=== PATIENT | female | born 1995 | race Caucasian/White ===

== ENCOUNTER 2020-08-19 05:17 | Emergency (ER) | payer OTHER ==
[~2020-08-19] VITALS: Ht 167.6 cm; Wt 65.8 kg
[2020-08-19 05:20] VITALS: BP 132/69
--- NOTE | 2020-08-19 05:20 | NUR ---
TO BED AMBULATORY
--- NOTE | 2020-08-19 05:30 | NUR ---
25 Y/O PATIENT PRESENTS TO ED WITH CHEST PAIN C/O COUGH. PT STATES "I DON'T FEEL GOOD, AND I'VE BEEN COUGHING ALL NIGHT. I HAVE 3/10 CHEST PAIN THAT GOES THROUGH THE BACK." DENIES N/V/D; SKIN IS PINK/WARM/DRY; AAOX4 WITH EVEN AND STEADY GAIT; LUNGS CLEAR BL; HR EVEN AND REGULAR; PT DENIES ANY FEVER, CP, SOB, OR COUGH AT THIS TIME; PATIENT STATES PAIN OF 3/10 AT THIS TIME; VSS; PATIENT POSITIONED FOR COMFORT; HOB ELEVATED; BEDRAILS UP X2; BED DOWN. ER MD MADE AWARE OF PT STATUS. NKA PMH: DENIES LMP: 2 WEEKS AGO
[2020-08-19] MEDS ORDERED: KETOROLAC 60 MG/2 ML VIAL IM ONE (06:20)
--- NOTE | 2020-08-19 06:35 | NUR ---
COLLECTED CARLA SWAB, SENT TO LAB. HANDED TO CPT MICHAEL. MICHAEL RECEIVED CARLA SWAB.
--- NOTE | 2020-08-19 07:09 | NUR ---
GIVEN REPORT TO PASCUAL RN, FOR CONTINUITY OF CARE
--- NOTE | 2020-08-19 07:09 | NUR ---
ASSUMED CARE, REPORT RECEIVED FROM ROBERT HIGUERA
[2020-08-19] MEDS ORDERED: ROB PO (07:11)
[2020-08-19] MEDS ORDERED: NAPR-54 PO (07:11)
[2020-08-19] MEDS ORDERED: AZIT250T4 PO (07:11)
[2020-08-19 07:35] VITALS: BP 132/69
--- NOTE | 2020-08-19 07:35 | NUR ---
Patient discharged with v/s stable. Written and verbal after care instructions given and explained. Patient alert, oriented and verbalized understanding of instructions. Ambulatory with steady gait. All questions addressed prior to discharge. ID band removed. Patient advised to follow up with PMD. Rx of ZITHROMAX, NAPROSY, ROBITUSSIN given. Patient educated on indication of medication including possible reaction and side effects. Opportunity to ask questions provided and answered.
== END 2020-08-19 07:35 | disposition home or self-care (01) ==
LOC: MED 05:17
DX: J20.9 Acute bronchitis, unspecified (principal); Z20.822 Contact with and (suspected) exposure to COVID-19; Z79.899 Other long term (current) drug therapy
CPT/HCPCS: 71045; 81025; 87426; 96372; 99284; J1885